=== PATIENT | male | born 1995 | race Caucasian/White ===

== ENCOUNTER 2020-06-19 17:16 | Emergency (ER) | payer OTHER, SELFPAY ==
--- NOTE | 2020-06-19 17:32 | ED.UPPEXIN ---
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 Patient states prior to arrival he cut his nondominant index finger area, along the radial aspect of his middle phalanges/ PIPJ. . He complains of mild pain and bleeding from the transverse, 1 cm laceration on the radial/medial aspect of his index finger,mid phalanges. No numbness, weakness, FB sensation. Related Data Home Medications Medication Instructions Recorded Confirmed No Home Medications 06/19/20 06/19/20 Allergies Allergy/AdvReac Type Severity Reaction Status Date / Time No Known Allergies Allergy Verified 06/19/20 17:43 Review of Systems Review of Systems: Narrative: The patient has been informed that they may have pre-hypertension or Hypertension based on a BP reading in the department. I recommend that the patient call the primary care provider listed on their discharge instructions or a physician of their choice this week to arrange follow up for further evaluation of possible pre-hypertension or Hypertension general/Constitutional: No weight loss,fever Eyes: N0: Redness,discharge Ears/Nose/Throat: No: Epistaxis,ear discharge Respiratory: Denies: Hemoptysis Gastrointestinal: No Vomiting, Bleeding-rectal Skin: No Lumps, eruption Neurologic: No Focal Weakness,Sz Hematologic: Denies: Petechiae/Purpura Psychiatric: No: Suicida ideationl All Other Systems: Reviewed and Negative PMFSH Comments At time of signature, agree with nursing past medical, surgical, social and family history. There is no relevant family history pertinent to the presenting complaint Exam Narrative: Exam Narrative: General Appearance: Well appearing, Conjunctiva clear Mouth/Throat: Normal appearing, Normal lips Neck: Supple Respiratory: Airway patent, No respiratory distress MS-finger: Normal strength (mostly intact, limited flexion/extension by pain), Tenderness (radially/medially, with mild decreased ROM), Scant swelling , Other (no anterior drawer, no collateral laxity, Skin: Warm, Dry, Normal color Neurological: A&O x3, Normal affect Course Vital Signs Vital signs: Vital Signs Temperature 98.5 F 06/19/20 17:34 Pulse Rate 80 06/19/20 17:34 Respiratory Rate 20 06/19/20 17:34 Blood Pressure 138/99 H 06/19/20 17:34 Pulse Oximetry 100 06/19/20 17:34 Temperature 98.5 F 06/19/20 17:34 Pulse Rate 80 06/19/20 17:34 Respiratory Rate 20 06/19/20 17:34 Blood Pressure 138/99 H 06/19/20 17:34 Pulse Oximetry 100 06/19/20 17:34 Procedures Laceration Laceration 1: Date: 06/19/20 Site: hand Side (If applicable): left Size (cm): 1.5 Description: linear Depth: simple, single layer Local Anesthetic: other anesthetic (LET) Pre-repair: irrigated extensively ====== Skin Level ====== Skin layer closed with: nylon Size (cm): 5-0 Number of sutures: 3 ====== Subcutaneous Layer ====== ====== Muscle Layer ====== ====== Tendon Layer ====== Discharge Plan Discharge Clinical Impression: Finger laceration Patient Disposition: Home, Self-Care Condition: Stable Instructions: Finger Laceration (ED) Additional Instructions: Remove stitches in about 1-1.5 weeks Prescriptions: New tramadol 50 mg tablet 50 mg PO Q6H PRN (Reason: pain) Qty: 15 RF: 1 mupirocin 2 % ointment 1 applic TOPICAL TID Qty: 30 RF: 0 No Action No Home Medications RF: 0 Follow-up/Referrals: UNKNOWN,DOCTOR [Primary Care Provider] -
[2020-06-19 17:34] VITALS: BP 138/99; PULSE 80; RESP 20; TEMP 36.9; O2SAT 100
--- NOTE | 2020-06-19 17:49 | PC.NURSE ---
1748 L.E.T. APPLIED TO THE LACERATION PER DR MCKENZIE. Jung ROTHMAN RN
[2020-06-19] MEDS: LIDOCAINE, EPINEPHRINE, TETRACAINE VISCOUS SOLN 3 ML TOPICAL (17:51)
== END 2020-06-19 18:15 | disposition home or self-care (01) ==
PROVIDERS: Emergency Provider Emergency Medicine
DX: S61.211A Laceration without foreign body of left index finger without damage to nail, initial encounter (principal); W45.8XXA Other foreign body or object entering through skin, initial encounter
CPT/HCPCS: 12001; 99213; G0463

== ENCOUNTER 2022-04-27 09:05 | Emergency (ER) | payer OTHER, SELFPAY ==
[2022-04-27 09:14] VITALS: BP 130/88; PULSE 74; RESP 16; TEMP 35.8; O2SAT 99
--- NOTE | 2022-04-27 09:53 | ED.EYEPROB ---
HPI - Eye Problem General Chief complaint: Eye Problems Stated complaint: RIGHT EYE PAIN Time Seen by Provider: 04/27/22 09:48 Source: patient, RN notes reviewed and old records reviewed Mode of arrival: ambulatory Limitations: no limitations History of Present Illness HPI Narrative: 26-year-old male who presents to [facility] with complaints of right eye pain which started last p.m. 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 He states he rubbed his right eye last night and he thinks he had something in it and scratched his eye. Patient has visual acuity of 20/13 right eye, 20/20 left eye without glasses, patient does not wear contacts, states wears safety glasses. MD chief complaint: eye pain and foreign body ( right eye) Onset (ago): hour(s) (Last p.m.) Severity scale (1-10): 4 Treatments Prior to Arrival: OTC eye drops Related Data Allergies Allergy/AdvReac Type Severity Reaction Status Date / Time No Known Allergies Allergy Verified 04/27/22 09:49 Review of Systems Review of Systems: CONSTITUTIONAL: Denies fever, chills, or sweats. EYES: Denies visual changes. Reports redness,, irritation, no discharge to right eye which started last p.m. ENT: Denies rhinorrhea, congestion, sore throat, or otalgia. CARDIOVASCULAR: Denies chest pain, palpitations, or edema. RESPIRATORY: Denies cough or dyspnea. SKIN: Denies rash or itching. NEUROLOGIC: Denies headache PMFSH Social History Social History (Updated 05/01/22 @ 07:59 by Gayle Crenshaw NP) Smoking status: Never smoker Alcohol intake: current Alcohol use details: social Substance use: never Gender identity (if verbalized by the patient): Male Spiritual care concerns: No Comments At time of signature, agree with nursing past medical, surgical, social and family history. There is no relevant family history pertinent to the presenting complaint Exam Narrative: GENERAL: Well-appearing, well-nourished, and in no acute distress. HEAD: Normocephalic, atraumatic. EYES: PERRLA and EOMI. Upper and lower eyelids unremarkable. No periorbital cellulitis noted. Sclera and conjunctivae injected with no change in vision.See procedure note. ENT: Nares clear, no rhinorrhea or epistaxis. Mucous membranes moist. NECK: Supple. no lymphadenopathy CHEST: Clear to auscultation. No respiratory distress.SAO2 99% on room air HEART: Regular rate and rhythm. No murmur heard. Normal peripheral pulses. SKIN: Warm, dry, no rash. NEURO: No focal deficits. Alert and oriented x3. Course Course Emergency Course: Patient is aware of diagnosis, understands and agrees to treatment plan. Anticipatory guidance given. Patient agrees to follow-up as directed and is aware of reasons to seek care at the emergency department. Portions of this record may have been created with voice recognition software Level of Care: Express Care Visit Vital Signs Vital signs: Vital Signs Temperature 35.8 C L 04/27/22 09:14 Pulse Rate 74 04/27/22 09:14 Respiratory Rate 16 04/27/22 09:14 Blood Pressure 130/88 04/27/22 09:14 Pulse Oximetry 99 04/27/22 09:14 Oxygen Delivery Room Air 04/27/22 09:14 Temperature 35.8 C L 04/27/22 09:14 Pulse Rate 74 04/27/22 09:14 Respiratory Rate 16 04/27/22 09:14 Blood Pressure 130/88 04/27/22 09:14 Pulse Oximetry 99 04/27/22 09:14 Oxygen Delivery Room Air 04/27/22 09:14 Reviewed Procedures FB Removal Eye Foreign Body #1: Foreign Body Removal Date: 04/27/22 Foreign Body Removal Time: 10:05 Time Out performed: Yes Location: eye (R) Topical anesthetic used: tetracaine (0.5%) Foreign body: other (none noted) Evidence of corneal penetration: No Technique: irrigation, eye wash bottle and cotton tip swab Procedure performed under: direct visualization with magnification and other (sanches lamp) Post-procedure medica
== END 2022-04-27 10:29 | disposition home or self-care (01) ==
PROVIDERS: Emergency Provider Registered Nurse
DX: S05.01XA Injury of conjunctiva and corneal abrasion without foreign body, right eye, initial encounter (principal); X58.XXXA Exposure to other specified factors, initial encounter
CPT/HCPCS: 99213; A9270; G0463

== ENCOUNTER 2023-02-07 21:34 | Emergency (ER) | payer OTHER, SELFPAY ==
[2023-02-07 21:37] VITALS: BP 131/95; PULSE 66; RESP 14; TEMP 36.4; O2SAT 100
--- NOTE | 2023-02-08 02:35 | ED.EYEPROB ---
HPI - Eye Problem General Chief complaint: Eye Problems <JULIENNE Philip Last Filed: 02/08/23 03:38> Stated complaint: eye injury <JULIENNE Philip Last Filed: 02/08/23 03:38> Time Seen by Provider: 02/08/23 01:27 <JULIENNE Philip Last Filed: 02/08/23 03:38> Source: patient <JULIENNE Philip Last Filed: 02/08/23 03:38> Mode of arrival: ambulatory <JULIENNE Philip Last Filed: 02/08/23 03:38> Limitations: no limitations <JULIENNE Philip Last Filed: 02/08/23 03:38> History of Present Illness HPI Narrative: Patient is a 27-year-old male who presents to the ED with report of left eye discomfort and foreign body. 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 He states he can see the metal piece. He complains of foreign body sensation, discomfort with moving eye, redness, drainage. Denies any vision changes, vision loss. <JULIENNE Philip Last Filed: 02/08/23 03:38> Related Data Allergies/adverse reactions: Allergies Allergy/AdvReac Type Severity Reaction Status Date / Time No Known Allergies Allergy Verified 04/27/22 09:49 <JULIENNE Philip Last Filed: 02/08/23 03:38> Review of Systems Review of Systems: CONSTITUTIONAL: Denies fever, chills, or sweats. EYES: See HPI. <JULIENNE Philip Last Filed: 02/08/23 03:38> All systems reviewed & are unremarkable except as noted in HPI and below <JULIENNE Philip Last Filed: 02/08/23 03:38> [facility] Social History Social History: Social History Smoking status: Never smoker Alcohol intake: current Alcohol use details: social Substance use: never Living arrangements: with family Gender identity (if verbalized by the patient): Male Spiritual care concerns: No <Carrie Henderson PA-C - Last Filed: 02/08/23 03:38> Exam Narrative: GENERAL: Well appearing, well-nourished, non-toxic, in no acute distress. HEAD: Normocephalic, atraumatic. EYES: PERRLA/EOMI, discomfort reported with extraocular movements of left eye. Left diffuse conjunctival injection with serous drainage. Clearly visible fabiano of metal in 7:00 region of cornea. No significant periorbital swelling or erythema. NECK: Supple. No adenopathy, no masses. RESPIRATORY: Airway patent, respirations nonlabored. CARDIOVASCULAR: Regular rate and rhythm without murmurs, rubs, or gallops. Radial pulses 2+ and equal bilaterally. MUSCULOSKELETAL: Moves all extremities. Strength/ROM intact without gross deformities. SKIN: Warm, dry, normal color. No rashes. NEURO: A&O X3. Speech clear. Cranial nerves II-XII grossly intact. Steady gait. No ataxic movements. PSYCHIATRIC: Appropriate mood and affect. Normal interaction. <Carrie Henderson PA-C - Last Filed: 02/08/23 03:38> Course [facility]/PA Physician Supervision This visit was performed by both the physician and an APC. I performed all aspects of the MDM as documented foreign body removal procedure was performed by me <Shahab Khanna MD - Last Filed: 02/08/23 03:56> Vital Signs Vital signs: Vital Signs Temperature 36.4 C 02/07/23 21:37 Pulse Rate 66 02/07/23 21:37 Respiratory Rate 14 02/07/23 21:37 Blood Pressure 131/95 H 02/07/23 21:37 Pulse Oximetry 100 02/07/23 21:37 Oxygen Delivery Room Air 02/07/23 21:37 Temperature 36.4 C 02/07/23 21:37 Pulse Rate 66 02/07/23 21:37 Respiratory Rate 14 02/07/23 21:37 Blood Pressure 131/95 H 02/07/23 21:37 Pulse Oximetry 100 02/07/23 21:37 Oxygen Delivery Room Air 02/07/23 21:37 <Carrie Henderson PA-C - Last Filed: 02/08/23 03:38> Vital Signs Temperature 36.4 C 02/07/23 21:37 Pulse Rate 66 02/07/23 21:37 Respirator
[2023-02-08] MEDS: OFLOXACIN 0.3% OPHTH SOLN 5 ML BTL 3 DROP LEFT EYE (02:57)
== END 2023-02-08 03:01 | disposition home or self-care (01) ==
PROVIDERS: Emergency Provider Physician Assistant; PCP Nurse Practitioner Family
DX: T15.02XA Foreign body in cornea, left eye, initial encounter (principal)
CPT/HCPCS: 65220; 99283; A9270